=== PATIENT | female | born 1950 | race Caucasian/White ===

== ENCOUNTER 2018-12-14 11:54 | Outpatient (CLI) | payer MEDICARE | END 2018-12-14 11:55 | disposition home or self-care (01) | LOC: BICMAMMO 11:54 | PROVIDERS: ATTEND Obstetrics & Gynecology | DX: Z12.31 Encounter for screening mammogram for malignant neoplasm of breast (principal) | CPT/HCPCS: 77063; 77067 ==

== ENCOUNTER 2020-04-29 09:10 | Outpatient (CLI) | payer MEDICARE ==
--- NOTE | 2020-04-29 10:50 | CT ---
CT Abdomen Pelvis W Con: 04/29/2020 12:00 AM CLINICAL INFORMATION: Rectal mass. Evaluate for metastatic disease. COMPARISON: None. TECHNIQUE: Multiple contiguous axial images were obtained and a CT of the abdomen and pelvis with IV contrast. Oral contrast was administered. Coronal and sagittal reformats were performed. FINDINGS: Lower Chest: within normal limits. Abdomen: Liver: within normal limits. Bile Ducts: Normal caliber. Gallbladder: No calcified gallstones. Normal caliber wall. Pancreas: within normal limits. Spleen: within normal limits. Adrenals: within normal limits. Kidneys: within normal limits. Pelvis: Reproductive Organs: There is a 5.9 cm uterine fibroid which appears intramural. Ureters: within normal limits. Bladder: within normal limits. Peritoneum: No ascites or free air, no fluid collection. Bowel: Normal caliber. Scattered diverticula in the colon. There is a 4.6 cm mass in the rectum which appears to involve the anterior wall of the rectum. There is a small duodenal diverticulum along the second portion of the duodenum. Mesentery and Retroperitoneum: No enlarged mesenteric or retroperitoneal lymph nodes. Vessels: Atherosclerotic calcifications. Abdominal Wall: within normal limits. Bones: Degenerative changes in the spine. IMPRESSION: 1. Rectal mass is consistent with a rectal malignancy. There is no evidence of metastatic disease 2. Diverticulosis 3. Uterine fibroid
== END 2020-04-29 09:11 | disposition home or self-care (01) ==
LOC: SCSCT 09:10
PROVIDERS: ATTEND Internal Medicine
DX: K62.89 Other specified diseases of anus and rectum (principal); D25.9 Leiomyoma of uterus, unspecified; K57.30 Diverticulosis of large intestine without perforation or abscess without bleeding
CPT/HCPCS: 74177; 82565

== ENCOUNTER 2020-05-16 05:39 | Outpatient (CLI) | payer MEDICARE, OTHER ==
[2020-05-16 16:33] LABS: #Basophils 0.1 thou/uL (0.0-0.2); #Eosinphils 0.1 thou/uL (0.0-0.7); #Lymphocytes 2.4 thou/uL (1.20-3.40); #Monocytes 0.9 thou/uL (0.11-0.59); #Neutrophils 7.5 thou/uL (1.40-6.50); %Basophils 0.5 % (0.0-1.0); %Eosinophils 1.1 % (0.0-10.0); %Lymphocytes 21.6 % (21.0-51.0); %Monocytes 8.2 % (0.0-10.0); %Neutrophils 68.7 % (42.0-75.0); Hemoglobin 13.8 g/dL (12.0-16.0); Mean Corpuscular HGB CONC 32.2 g/dL (32.0-36.0); Mean Corpuscular Hemoglobin 29.9 pg (27.0-31.0); Mean Corpuscular Volume 92.8 fL (78.0-98.0); Mean Platelet Volume 7.6 fL (7.4-10.4); Platelet Count 422 thou/uL (130-400); RBC Distribution Width 12.4 % (11.5-14.5); White Blood Cell (WBC) Count 10.9 thou/uL (4.8-10.8)
[2020-05-16 17:22] LABS: Anion Gap 20 mmol/L (10-20); BUN (Urea Nitrogen) 19 mg/dL (9.8-20.1); Calc. Creatinine Clearance 0 mL/min (70-130); Calcium 10.4 mg/dL (7.8-10.44); Carbon Dioxide 27 mmol/L (23-31); Chloride 96 mmol/L (98-107); Estimated GFR-MDRD 60; Glucose 104 mg/dL (80-115); Potassium 4.1 mmol/L (3.5-5.1); Sodium 139 mmol/L (136-145)
[2020-05-17 14:44] LABS: SARS-CoV-2 MS2 Positive; SARS-CoV-2 N Gene Negative; SARS-CoV-2 S Gene Negative; SARS-CoV-2 by NAA Not Detected (NotDetected); SARS-CoV-2 orf1ab Negative
== END 2020-05-16 05:40 | disposition home or self-care (01) ==
LOC: LABBT 05:39
PROVIDERS: ATTEND Specialist
DX: Z01.812 Encounter for preprocedural laboratory examination (principal); Z11.59 Encounter for screening for other viral diseases; K62.89 Other specified diseases of anus and rectum
CPT/HCPCS: 80048; 85025; U0003; 87635

== ENCOUNTER → 2020-05-20 | Day surgery (SDC) | payer MEDICARE ==
[~2020-05-20] MED LIST: Acetaminophen 500 MG TAB ONE; Bupivacaine 0.25% HCL 30 ML VIAL ONE; Calcium Chloride 1 GM/10 ML Abboject SYRINGE ONE; Dexamethasone 20 MG/5 ML VIAL ONE; EPHEDRINE 25 MG/5 ML SYRINGE ONE; Fentanyl 100 MCG/2 ML VIAL ONE; Glycopyrrolate 0.2 MG/ML 5 ML SYRINGE ONE; Ketorolac Tromethamine 30 MG/ML VIAL ONE; Labetalol HCl 100 MG/20 ML VIAL ONE; Lidocaine 1% PF 5 ML VIAL ONE; Lidocaine 1% w/Epinephrine 1:100K 20 ML VIAL ONE; Lidocaine 2% Jelly 5 ML TUBE ONE; Midazolam HCl 2 mg/2 ml Vial ONE; Ondansetron PF 4 MG/2 ML Vial ONE; PROPOFOL 200 MG/20 ML VIAL ONE; Rocuronium Bromide 10 MG/ML (10ML VIAL) ONE
--- NOTE | 2020-05-20 15:49 | EKG ---
Test Reason : PREOP Blood Pressure : / mmHG Vent. Rate : 080 BPM Atrial Rate : 080 BPM P-R Int : 162 ms QRS Dur : 080 ms QT Int : 396 ms P-R-T Axes : 061 033 067 degrees QTc Int : 456 ms Normal sinus rhythm Normal ECG Confirmed by LAURA AGUIRRE ([id number]) on 05/20/2020 3:49:14 PM Referred By: TAMARA Confirmed By:LAURA AGUIRRE
--- NOTE | 2020-05-21 00:27 | OP ---
DATE OF PROCEDURE: 05/20/2020 PREOPERATIVE DIAGNOSIS: Large rectal mass within the upper rectum. POSTOPERATIVE DIAGNOSIS: Large rectal mass within the upper rectum. OPERATION PERFORMED: TAMIS (transanal minimally invasive surgery) for resection of rectal mass. ANESTHESIA: General endotracheal per Dr. Fredo Sanchez. INDICATIONS: The patient is a 69-year-old white female. She underwent recent colonoscopy revealing a large mass within the upper rectum. This was benign upon biopsy, but far too large to remove colonoscopically. This is too high within the rectum to allow removal through a standard transanal approach. I therefore recommended transanal minimally invasive surgery to treat this. DESCRIPTION OF OPERATION: Informed consent was obtained. The patient was taken to the operating room, where general endotracheal anesthesia was obtained, the patient in supine position. She was then placed into dorsal lithotomy using Yellofins stirrups. The perianal area was prepped with Betadine and draped in sterile fashion. Local anesthetic was infiltrated in a 4-quadrant intersphincteric fashion using a combination of 1% lidocaine with epinephrine and 0.25% Marcaine. The anus was gently dilated digitally and with the dilator that comes with the GelPOINT. The GelPOINT retractor was then placed within the anal canal and the external portion was snapped onto the GelPOINT retractor. Pneumorectum was obtained with the patient fully paralyzed. Under direct vision, I was able to quickly identify the large villous-appearing lesion that completely occluded the lumen of the upper rectum and emanated from the right lateral aspect of the rectum. Due to the size of this, it was difficult to visualize circumferentially around the lesion. When I began to grasp this to attempt to mobilize it, it also proved to be very friable. Each portion of it that was grasped would tear-away and I fairly quickly began a piecemeal resection of this simply using the blunt graspers. At least 1/2 to potentially 2/3 of the volume of this was removed in this fashion. Thankfully, there was not excessive bleeding as this occurred. There was certainly enough bleeding that it made visualization of the base of this difficult. At the point that I was able to grasp the remainder of the lesion and distracted laterally, I was able to clearly visualize the base of this. I began a careful dissection through normal mucosa in a full-thickness fashion removing the lesion as well as some of the underlying muscularis. The specimen was removed in its entirety and passed off the field. Meticulous hemostasis was maintained using electrocautery. After the lesion was removed, the defect in the lateral colon wall was clearly visualized and entirely hemostatic. I closed this using four interrupted sutures of 2-0 Vicryl, each of which was tied externally. When completed, the defect was completely closed and entirely hemostatic. The GelPOINT external and internal portions were removed. It was recognized that there were couple of very superficial external tears in the superficial anal skin. Additional local anesthetic was infiltrated. Dry gauze dress was placed externally along with mesh pants. There were no complications and minimal blood loss. Patient tolerated the procedure well and was taken to recovery room in stable condition. Job ID: [id number]
== END ==
LOC: SDC 06:08
PROVIDERS: ATTEND Specialist
PROC: 0DBP8ZZ Excision of Rectum, Via Natural or Artificial Opening Endoscopic (ICD-10-PCS; principal; 2020-05-20)
DX: D12.8 Benign neoplasm of rectum (principal); I10 Essential (primary) hypertension; F32.9 Major depressive disorder, single episode, unspecified; F41.9 Anxiety disorder, unspecified; J45.909 Unspecified asthma, uncomplicated; E66.9 Obesity, unspecified; Z68.34 Body mass index [BMI] 34.0-34.9, adult; Z87.891 Personal history of nicotine dependence; Z79.899 Other long term (current) drug therapy; Z88.5 Allergy status to narcotic agent
CPT/HCPCS: 0184T; 93005; 88305; 93010; J0694; J1100; J1885; J2250; J2405; J2704; J3010; S0020

== ENCOUNTER 2020-12-15 09:44 | Outpatient (CLI) | payer MEDICARE ==
--- NOTE | 2020-12-15 11:58 | MMO ---
Bilateral MAMMO Bilat Screen [facility]. CLINICAL HISTORY: Patient is 70 years old and is seen for screening. The patient has no family history of breast cancer. The patient has no personal history of cancer. VIEWS: The views performed were: bilateral craniocaudal with tomosynthesis and bilateral mediolateral oblique with tomosynthesis. FILMS COMPARED: The present examination has been compared to prior imaging studies performed at [facility] on 06/13/2014, 03/22/2017 and 12/14/2018. This study has been interpreted with the assistance of computer-aided detection. MAMMOGRAM FINDINGS: The breasts are almost entirely fat. There is a new round mass measuring 3 millimeters with circumscribed margins seen in the anterior inner region of the right breast. In the left breast, there are no suspicious masses, calcifications or areas of architectural distortion. IMPRESSION: NEW MASS IN THE RIGHT BREAST REQUIRES ADDITIONAL EVALUATION. AN ULTRASOUND EXAM IS RECOMMENDED. THE RESULTS OF THIS EXAM WERE SENT TO THE PATIENT. ACR BI-RADS Category 0 - Incomplete: Need additional imaging evaluation. [facility] will notify the patient of the need for additional imaging services. MAMMOGRAPHY NOTE: 1. A negative mammogram report should not delay a biopsy if a dominant of clinically suspicious mass is present. 2. Approximately 10% to 15% of breast cancers are not detected by mammography. 3. Adenosis and dense breasts may obscure an underlying neoplasm. Reported by: EDELMIRA JONES MD Electonically Signed: [id number]
== END 2020-12-15 09:45 | disposition home or self-care (01) ==
LOC: BICMAMMO 09:44
PROVIDERS: ATTEND Registered Nurse
DX: Z12.31 Encounter for screening mammogram for malignant neoplasm of breast (principal); N63.10 Unspecified lump in the right breast, unspecified quadrant
CPT/HCPCS: 77063; 77067

== ENCOUNTER 2020-12-30 08:54 | Outpatient (CLI) | payer MEDICARE | END 2020-12-30 08:55 | disposition home or self-care (01) | LOC: BICULT 08:54 | PROVIDERS: ATTEND Registered Nurse | DX: N63.15 Unspecified lump in the right breast, overlapping quadrants (principal) ==